=== PATIENT | male | born 1930 | race Caucasian/White ===

== ENCOUNTER 2016-04-03 11:25 | Observation (INO) | payer MEDICARE, OTHER ==
[~2016-04-03] VITALS: Ht 170.2 cm; Wt 59.7 kg
[2016-04-03] MEDS ORDERED: LORAZEPAM 2 MG/ML VIAL IV PRN (15:55)
[2016-04-03] MEDS ORDERED: SALINE FLUSH 10 ML FLUSH PRN (15:55)
[2016-04-03] MEDS ORDERED: LACT RINGERS 1,000 ML IV SCH (16:50)
[2016-04-03 17:36] VITALS: BP_SYST 160; RESP 20; TEMP 98; Ht 170.2 cm; Wt 59.7 kg
[2016-04-03 17:59] VITALS: BP_SYST 164
[2016-04-03] MEDS: ASPIRIN EC 81 MG TAB PO SCH (18:21)
[2016-04-03 18:26] VITALS: BP_SYST 117; BP_SYST 144; RESP 20
[2016-04-03 19:52] VITALS: BP_SYST 123; RESP 18; TEMP 97.4
[2016-04-03] MEDS: SALINE FLUSH 10 ML FLUSH SCH (20:00)
[2016-04-03 20:32] VITALS: BP_SYST 123; BP_SYST 124; BP_SYST 148
[2016-04-03] MEDS ORDERED: FAMOTIDINE 20 MG TAB PO SCH (21:00)
[2016-04-03 23:45] VITALS: BP_SYST 122; RESP 18; TEMP 97.8
[2016-04-04] VITALS (9 sets, daily range): BP systolic 134–185; RESP 18–20; TEMP 97.2–97.9
[2016-04-04] MEDS ORDERED: SODIUM CHLORIDE 0.9% FLUSH BAG 500 ML IV SCH (06:00)
[2016-04-04] MEDS: SALINE FLUSH 10 ML FLUSH SCH (08:17)
[2016-04-04] MEDS: ASPIRIN EC 81 MG TAB PO SCH (08:17)
[2016-04-04] MEDS ORDERED: LACT RINGERS 1,000 ML IV SCH (12:00)
[2016-04-04] MEDS ORDERED: FLINTSTONES COMPLETE PO SCH (12:07)
[2016-04-04] MEDS ORDERED: TAMSULOSIN 0.4 MG CAP PO SCH (12:07)
[2016-04-04] MEDS ORDERED: LISINOPRIL 20 MG TAB PO SCH (12:07)
[2016-04-04] MEDS ORDERED: CYCLOSPORINE OP SOLN EYE EACH SCH (21:00)
[2016-04-05] MEDS ORDERED: ASPIRIN EC 81 MG TAB PO SCH (09:00)
[2016-04-05] MEDS ORDERED: MESALAMINE 1200 MG PO SCH (09:00)
[2016-04-05] MEDS ORDERED: LEVOTHYROXINE 0.075 MG TAB PO SCH (09:00)
== END 2016-04-04 12:01 | disposition home or self-care (01) ==
LOC: ENRESERVTM → ENRESERVDT → ER 11:25 → ENPENDDIS 15:53 → EMR 15:53 → PCU2 17:26
PROVIDERS: ADMIT Family Medicine; ATTEND Family Medicine
DX: R56.9 Unspecified convulsions (principal); Z87.891 Personal history of nicotine dependence; K51.90 Ulcerative colitis, unspecified, without complications; M19.90 Unspecified osteoarthritis, unspecified site; E03.9 Hypothyroidism, unspecified; K21.9 Gastro-esophageal reflux disease without esophagitis; I10 Essential (primary) hypertension; Z79.82 Long term (current) use of aspirin; R55 Syncope and collapse
CPT/HCPCS: 36415; 70450; 70551; 80053; 81001; 82947; 83605; 83735; 84439; 84443; 84484; 85025; 93005; 93306; 93660; 97161; 97165; 99285; G0378; G8978; G8979; G8980; G8987; G8988; G8989; J7120